=== PATIENT | female | born 1955 | race Hispanic/Latino ===

== ENCOUNTER 2020-01-15 05:53 | Day surgery (SDC) | payer MEDICARE ==
[2020-01-14 12:04] LABS: BASOPHILS % (AUTO) 0.7 % (0.0-5.0); EOSINOPHILS % (AUTO) 0.3 % (0.0-8.0); HEMATOCRIT 43.3 % (36-48); MEAN CORPUSCULAR HEMOGLOBIN 29.6 pg (27.0-33.0); MEAN CORPUSCULAR VOLUME 89.6 fL (79-99); MONOCYTES % (AUTO) 4.6 % (3.0-13.0); NEUTROPHILS % (AUTO) 73.1 % (40.0-77.0); PLATELET COUNT (AUTO) 290 K/uL (130-400); RED BLOOD CELL COUNT(AUTO) 4.83 MIL/uL (4.00-5.50); RED CELL DISTRIBUTION WIDTH 12.9 % (11.0-15.5); WHITE BLOOD COUNT (AUTO) 8.9 K/uL (4.8-10.8)
[2020-01-14 12:11] LABS: CREATININE 0.7 mg/dL (0.5-1.5); POTASSIUM 4.3 mmol/L (3.5-5.1)
[2020-01-14 16:12] VITALS: BP 125/66
[~2020-01-15] VITALS: Ht 157.5 cm; Wt 68.2 kg
[2020-01-15] VITALS (21 sets, daily range): BP systolic 109–141; BP diastolic 56–78
[~2020-01-15 05:53] MED LIST: ACET1TAB12 PO; ATOR20TA65 PO; LEVO50TA11 PO; LISI-613 PO; METF-444 PO
[2020-01-15] MEDS ORDERED: SODIUM CHLORIDE 0.9% 1000ML 1,000 ML IV ONE (07:25)
[2020-01-15] MEDS: CEFAZOLIN SODIUM 1 GM VIAL ONE ×2 (07:27→09:00)
--- NOTE | 2020-01-15 07:35 | NUR ---
POTENTIAL FOR INFECTION: NO CLIPPING NEEDED TO LEFT HAND ASSESSED PER [employer] M[employer]. WIPED LEFT LOWER ARM AND LEFT HAND WITH PEG: CHLORHEXIDINE GLUCONATE CLOTH PATIENTS PRE-OP SKIN PREP PER STEPHANE MUSE.
[2020-01-15] MEDS ORDERED: LIDOCAINE PF 2% 5ML ABBOJECT ONE ×2 (08:53→08:55)
[2020-01-15] MEDS ORDERED: FENTANYL CITRATE PF 50 MCG/1 ML 2ML VIAL ONE (08:54)
[2020-01-15] MEDS ORDERED: GLYCOPYRROLATE 1 MG/5 ML SYRINGE ONE (08:54)
[2020-01-15] MEDS ORDERED: NEOSTIGMINE 5MG/5ML SYR IV ONE (08:54)
[2020-01-15] MEDS ORDERED: MIDAZOLAM HCL 1 MG/ML 2ML VIAL ONE (08:54)
[2020-01-15] MEDS ORDERED: ROCURONIUM 10MG/1ML SYR 10 MG/ML ML ONE (08:54)
[2020-01-15] MEDS ORDERED: PROPOFOL 10 MG/ML 20ML VIAL IV ONE (08:54)
[2020-01-15] MEDS ORDERED: IBUP-2070 PO (09:49)
[2020-01-15] MEDS ORDERED: ACET1TAB12 PO (09:58)
[2020-01-15] MEDS ORDERED: MEPERIDINE-PF 25 MG/ML SYG ONE ×2 (10:24→11:18)
[2020-01-15] MEDS ORDERED: KETOROLAC TROMETHAMINE 15MG/ML ONE (10:42)
--- NOTE | 2020-01-15 11:45 | NUR ---
RECEIVE PT RECEIVED FROM PACU VIA STRETCHER AWAKE ALERT ORIENTED. STABLE. NO COMPLAINTS MADE DRESSING TO LEFT ARM DRY AND INTACT NO OOZING NOTED, LEFT ARM KEPT IN SLING AND ELEVATED. PT ABLE TO MOVE FINGERS WITHOUT DIFFICULTY, CAPILLARY REFILLS BRISK, NAIL BEDS PINK, SENSATION INTACT. CALL [facility] WITHIN REACH, WILL CALL FOR RIDE HOME.
--- NOTE | 2020-01-15 12:20 | NUR ---
DISCHARGE PT DISCHARGED VIA WHEELCHAIR WITH STEP GENOVEVA SCHUMACHER. PT STABLE. NO COMPLAINTS MADE. LEFT ARM SLING IN PLACE. NO CHANGES NOTED TO SITE, DRESSING DRY AND INTACT. DISCHARGE INSTRUCTIONS GIVEN TO OJ SCHUMACHER, VERBALIZED UNDERSTANDING.
[2020-01-22] MEDS ORDERED: CEFAZOLIN SODIUM 1 GM VIAL IVP SCH (05:00)
== END 2020-01-15 12:20 | disposition home or self-care (01) ==
LOC: DAH 05:53
PROVIDERS: ATTEND Orthopaedic Surgery
DX: S52.572A Other intraarticular fracture of lower end of left radius, initial encounter for closed fracture (principal); I10 Essential (primary) hypertension; E11.9 Type 2 diabetes mellitus without complications; E78.00 Pure hypercholesterolemia, unspecified; E66.9 Obesity, unspecified; Z79.899 Other long term (current) drug therapy; Z79.84 Long term (current) use of oral hypoglycemic drugs; Z68.25 Body mass index [BMI] 25.0-25.9, adult; Z90.49 Acquired absence of other specified parts of digestive tract; Z90.710 Acquired absence of both cervix and uterus; W10.9XXA Fall (on) (from) unspecified stairs and steps, initial encounter; Y93.89 Activity, other specified; Y92.89 Other specified places as the place of occurrence of the external cause; Y99.8 Other external cause status
CPT/HCPCS: 25606; 36415; 73110; 80048; 82948 ×2; 85025; 93005; A4213; A4215; A4221; A4222; A4223; A4565; A4649; A4663; A4930; A5120; A6223; J0690; J1885; J2001 ×2; J2175 ×2; J2250; J2704; J2710; J3010; J3490; J7030 ×2; Q4051